=== PATIENT | male | born 1965 | race Caucasian/White ===

== ENCOUNTER 2023-05-26 12:43 | Outpatient (CLI) | payer BC, SELFPAY | END 2023-05-26 12:44 | disposition home or self-care (01) | LOC: RAD 12:46 | PROVIDERS: PCP Family Medicine; Visit Provider Internal Medicine Cardiovascular Disease | DX: Z95.2 Presence of prosthetic heart valve (principal) | CPT/HCPCS: 93306 ==

== ENCOUNTER 2025-04-04 08:51 | Outpatient (CLI) | payer BC, SELFPAY | END 2025-04-04 08:52 | disposition home or self-care (01) | LOC: RAD 08:52 | PROVIDERS: PCP Family Medicine; Visit Provider Internal Medicine Cardiovascular Disease | DX: Z98.890 Other specified postprocedural states (principal); I34.0 Nonrheumatic mitral (valve) insufficiency | CPT/HCPCS: 93306 ==